=== PATIENT | female | born 1980 | race Caucasian/White ===

== ENCOUNTER 2022-04-25 15:01 | Observation (INO) ==
[2022-04-25 17:22] VITALS: BMI 40.3
[2022-04-25] MEDS: D5 1/2 NS 1,000 ML 1,000 ML IV SCH (17:56)
[2022-04-25] MEDS: DILAUDID INJ IVP PRN (17:57)
[2022-04-25] MEDS: PROTONIX INJ 40 MG VIAL IVP SCH (20:40)
[2022-04-26] MEDS: DILAUDID INJ IVP PRN ×3 (00:37→23:23)
[2022-04-26] MEDS: ZOFRAN INJ 4 MG VIAL IVP PRN ×3 (00:38→23:23)
[2022-04-26] MEDS: D5 1/2 NS 1,000 ML 1,000 ML IV SCH ×3 (02:38→18:20)
[2022-04-26 05:10] LABS: BASOPHILS # (AUTO) 0.1 X10^3/uL (0.0-0.1); BASOPHILS % (AUTO) 0.7 % (0.2-1.0); EOSINOPHILS # (AUTO) 0.1 x10^3/uL (0.0-0.2); EOSINOPHILS % (AUTO) 1.3 % (0.9-2.9); HEMATOCRIT 37.1 % (36.0-47.0); HEMOGLOBIN 12.4 g/dL (12.0-16.0); LYMPHOCYTES # (AUTO) 2.7 X10^3/uL (1.3-2.9); LYMPHOCYTES % (AUTO) 30.9 % (21.0-51.0); MEAN CORPUSCULAR HEMOGLOBIN 27.7 pg (27.0-34.0); MEAN CORPUSCULAR HGB CONC 33.3 g/dL (33.0-35.0); MEAN CORPUSCULAR VOLUME 83.1 fL (80.0-100.0); MEAN PLATELET VOLUME 8.1 fL (7.4-11.0); MONOCYTES # (AUTO) 0.6 x10^3/uL (0.3-0.8); MONOCYTES % (AUTO) 6.8 % (0.0-13.0); NEUTROPHILS # (AUTO) 5.2 x10^3/uL (2.2-4.8); NEUTROPHILS % (AUTO) 60.3 % (42.0-75.0); RED BLOOD COUNT 4.46 X10^6/uL (3.5-5.4); WHITE BLOOD COUNT 8.6 X10^3/uL (3.6-10.0)
[2022-04-26 05:23] LABS: ALANINE AMINOTRANSFERASE 18 Units/L (12-78); ALBUMIN 3.1 g/dL (3.4-5.0); ALKALINE PHOSPHATASE 92 Units/L (46-116); ASPARTATE AMINO TRANSFERASE 15 Units/L (15-37); BLOOD UREA NITROGEN 19 mg/dL (7-18); CALCIUM 7.8 mg/dL (8.5-10.1); CARBON DIOXIDE 25.8 mmol/L (21-32); CHLORIDE 107 mmol/L (98-107); COR CA(FOR HYPOALB) 8.5 mg/dL (8.5-10.1); COR NA(FOR HYPERGLY) 139 mmol/L (136-145); CREATININE 1.01 mg/dL (0.55-1.02); SODIUM 139 mmol/L (136-145); TOTAL PROTEIN 6.5 g/dL (6.4-8.2); eGFR NON BLACK RACES > 60 (>60)
--- NOTE | 2022-04-26 08:29 | RAD ---
HISTORYFollow-up small bowel obstructionSTUDYKUBCOMPARISONCT abdomen pelvis 04/25/2022FINDINGSThe abdominal gas pattern is nonspecific and nonobstructive. No air-filled dilated small bowel loops are identified. This represents a significant change when compared with the book reviewer abdominal film obtained for the CT abdomen pelvis 04/25/2022. It is possible that the small-bowel obstruction clearly present on CT may have resolved. Clinical correlation is recommended. Follow-up CT could be obtained if clinically indicated. No abnormal masses or abnormal calcifications are identified. Regional skeleton is intact.IMPRESSIONNo significant visualized dilated small bowel loops on this examination representing a significant change from prior. Small bowel obstruction present on the prior examination and CT abdomen pelvis 04/25/2022 may have resolved. Clinical correlation is recommended. Follow-up CT could be obtained if clinically indicatedElectronically signed by: LITA DE LA TORRE (Apr 26, 2022 08:27:31)
[2022-04-26] MEDS: PROTONIX INJ 40 MG VIAL IVP SCH ×2 (09:15→20:39)
--- NOTE | 2022-04-26 09:33 | DR.PROGNOT ---
Hospital Progress Notes - Progress Note for Day of: Progress Note Date: 04/26/22 - Chief Complaint Chief Complaint: less abdominal pain .. no vomiting this am . repeated X Ray showed resolved SBO .. afebrile .. - Past Medical Family Social History Past Med/Fam/Surg Hx: No changes since H&P Allergies: Allergies No Known Allergies Allergy (Verified 04/25/22 17:23) - Review Of Systems ROS: No change since H&P - Vital Signs Vital Signs: Temperature 97.9 F Pulse Rate [Apical] 67 Pulse Rate 67 Respiratory Rate 19 Blood Pressure [Left Arm] 128/66 Blood Pressure 118/77 O2 Sat by Pulse Oximetry 99 - Physical Exam Oriented: Normal Eyes: Normal Ear: Normal Nose: Normal Respiratory: Normal Cardiovascular: Normal : Normal GI:Auscultation: Normal GI:Palpation: Normal GI: Tenderness: LLQ (soft, flat abdomen with localized tenderness LLQ , no rebound . BS+ ) Speech Pattern: Clear, Appropriate - Laboratory and Diagnostics Result Diagrams: 04/26/22 04:30 04/26/22 04:30 Labs: Laboratory WBC 8.6 X10^3/uL (3.6-10.0) 04/26/22 04:30 RBC 4.46 X10^6/uL (3.5-5.4) 04/26/22 04:30 Hgb 12.4 g/dL (12.0-16.0) 04/26/22 04:30 Hct 37.1 % (36.0-47.0) 04/26/22 04:30 MCV 83.1 fL (80.0-100.0) 04/26/22 04:30 MCH 27.7 pg (27.0-34.0) 04/26/22 04:30 MCHC 33.3 g/dL (33.0-35.0) 04/26/22 04:30 RDW 14.0 % (11.6-16.5) 04/26/22 04:30 Plt Count 298 X10^3/uL (150.0-450.0) 04/26/22 04:30 MPV 8.1 fL (7.4-11.0) 04/26/22 04:30 Neut % (Auto) 60.3 % (42.0-75.0) 04/26/22 04:30 Lymph % (Auto) 30.9 % (21.0-51.0) 04/26/22 04:30 [place] % (Auto) 6.8 % (0.0-13.0) 04/26/22 04:30 Eos % (Auto) 1.3 % (0.9-2.9) 04/26/22 04:30 Baso % (Auto) 0.7 % (0.2-1.0) 04/26/22 04:30 Neut # (Auto) 5.2 x10^3/uL (2.2-4.8) H 04/26/22 04:30 Lymph # (Auto) 2.7 X10^3/uL (1.3-2.9) 04/26/22 04:30 [place] # (Auto) 0.6 x10^3/uL (0.3-0.8) 04/26/22 04:30 Eos # (Auto) 0.1 x10^3/uL (0.0-0.2) 04/26/22 04:30 Baso # (Auto) 0.1 X10^3/uL (0.0-0.1) 04/26/22 04:30 Absolute Nucleated RBC 0.1 /100WBC 04/26/22 04:30 Sodium 139 mmol/L (136-145) 04/26/22 04:30 Corrected Sodium 139 mmol/L (136-145) 04/26/22 04:30 Potassium 3.9 mmol/L (3.5-5.1) 04/26/22 04:30 Chloride 107 mmol/L (98-107) 04/26/22 04:30 Carbon Dioxide 25.8 mmol/L (21-32) 04/26/22 04:30 BUN 19 mg/dL (7-18) H 04/26/22 04:30 Creatinine 1.01 mg/dL (0.55-1.02) 04/26/22 04:30 Est GFR (MDRD) Af Amer > 60 (>60) 04/26/22 04:30 Est GFR (MDRD) Non-Af > 60 (>60) 04/26/22 04:30 Glucose 117 mg/dL (65-99) H 04/26/22 04:30 Calcium 7.8 mg/dL (8.5-10.1) L 04/26/22 04:30 Corrected Calcium 8.5 mg/dL (8.5-10.1) 04/26/22 04:30 Total Bilirubin 0.20 mg/dL (0.2-1.0) 04/26/22 04:30 AST 15 Units/L (15-37) 04/26/22 04:30 ALT 18 Units/L (12-78) 04/26/22 04:30 Alkaline Phosphatase 92 Units/L (46-116) 04/26/22 04:30 Total Protein 6.5 g/dL (6.4-8.2) 04/26/22 04:30 Albumin 3.1 g/dL (3.4-5.0) L 04/26/22 04:30 Globulin 3.4 g/dL (2.5-4.5) 04/26/22 04:30 Albumin/Globulin Ratio 0.9 Ratio (1.1-2.1) L 04/26/22 04:30 - Assessment and Plan 1: resolving partial SBO .. dehydration is corrected . possible renal colic with hematuria . to advance diet . same IVF . d/c in am
[2022-04-26 11:27] LABS: BILIRUBIN,URINE NEGATIVE (NEGATIVE); BLOOD/HEMOGLOBIN,URINE NEGATIVE (NEGATIVE); GLUCOSE, URINE NEGATIVE (NEGATIVE); KETONES,URINE NEGATIVE (NEGATIVE); LEUKOCYTE ESTERASE ,URINE 1+ (NEGATIVE); NITRITES,URINE NEGATIVE (NEGATIVE); PROTEIN,URINE 1+ (NEGATIVE); UROBILINOGEN,URINE NORMAL (NORMAL)
[2022-04-26 11:34] LABS: APPEARANCE,URINE HAZY (CLEAR); COLOR,URINE YELLOW (YELLOW)
[2022-04-26 11:38] LABS: RBC,URINE 0-2 /HPF (0-3)
[2022-04-26 11:39] LABS: BACTERIA,URINE 2+ /HPF (NEGATIVE); SQUAMOUS EPITHELIAL CELL,UR MANY /HPF (NEGATIVE); TRANSITIONAL EPI CELLS,URINE FEW /HPF (NEGATIVE)
[2022-04-27] MEDS ORDERED: TYLENOL 325 MG TAB PO PRN (02:21)
[2022-04-27] MEDS ORDERED: TYLENOL 325 MG TAB PO ONE (02:31)
[2022-04-27] MEDS: D5 1/2 NS 1,000 ML 1,000 ML IV SCH (02:35)
[2022-04-27 05:40] LABS: BASOPHILS % (AUTO) 0.7 % (0.2-1.0); EOSINOPHILS # (AUTO) 0.3 x10^3/uL (0.0-0.2); HEMATOCRIT 34.7 % (36.0-47.0); HEMOGLOBIN 11.6 g/dL (12.0-16.0); LYMPHOCYTES # (AUTO) 2.9 X10^3/uL (1.3-2.9); LYMPHOCYTES % (AUTO) 38.5 % (21.0-51.0); MEAN CORPUSCULAR HEMOGLOBIN 27.5 pg (27.0-34.0); MEAN CORPUSCULAR HGB CONC 33.5 g/dL (33.0-35.0); MEAN PLATELET VOLUME 8.3 fL (7.4-11.0); MONOCYTES # (AUTO) 0.5 x10^3/uL (0.3-0.8); MONOCYTES % (AUTO) 7.3 % (0.0-13.0); NEUTROPHILS # (AUTO) 3.7 x10^3/uL (2.2-4.8); NEUTROPHILS % (AUTO) 49.5 % (42.0-75.0); RED BLOOD COUNT 4.23 X10^6/uL (3.5-5.4); WHITE BLOOD COUNT 7.4 X10^3/uL (3.6-10.0)
[2022-04-27 05:53] LABS: ALANINE AMINOTRANSFERASE 19 Units/L (12-78); ALBUMIN 2.7 g/dL (3.4-5.0); ALKALINE PHOSPHATASE 96 Units/L (46-116); ASPARTATE AMINO TRANSFERASE 14 Units/L (15-37); BLOOD UREA NITROGEN 12 mg/dL (7-18); CALCIUM 7.6 mg/dL (8.5-10.1); CARBON DIOXIDE 29.9 mmol/L (21-32); CHLORIDE 108 mmol/L (98-107); COR CA(FOR HYPOALB) 8.6 mg/dL (8.5-10.1); CREATININE 0.95 mg/dL (0.55-1.02); SODIUM 141 mmol/L (136-145); TOTAL PROTEIN 5.9 g/dL (6.4-8.2); eGFR NON BLACK RACES > 60 (>60)
--- NOTE | 2022-04-27 06:17 | RAD ---
HISTORYLLQ PAIN HX: MVP SX: COLON [id number]/22/2022 r.br.br.br gas pattern. There is a moderate amount of fecal material throughout the colon. Surgical clips right upper quadrant. No pathological soft tissue mass or calcification can be observed. The bony structures are grossly intact.IMPRESSIONNo evidence for acute abdominal pathology identified.Electronically signed by: Otis Lacey (Apr 27, 2022 06:15:43)
[2022-04-27 08:19] VITALS: BP 127/63
== END 2022-04-27 09:15 | disposition home or self-care (01) ==
LOC: ICU
PROVIDERS: ADMIT Surgery; ATTEND Surgery
DX: K56.51 Intestinal adhesions [bands], with partial obstruction; R10.84 Generalized abdominal pain; E86.0 Dehydration; R10.32 Left lower quadrant pain; R31.9 Hematuria, unspecified